=== PATIENT | female | born 1990 | race Hispanic/Latino ===

== ENCOUNTER 2022-10-17 09:30 | Inpatient (IN) | payer MEDICAID, SELFPAY ==
[~2022-10-17 09:30] MED LIST: Iopamidol 370 76% 100 ML VIAL ONE; Iopamidol 370 76% 50 ML VIAL FS ONE
[2022-10-17] MEDS ORDERED: Ondansetron PF 4 MG/2 ML Vial ONE ×2 (09:45→10:57)
[2022-10-17 10:30] LABS: #Eosinphils 0.1 thou/uL (0.0-0.7); #Monocytes 0.4 thou/uL (0.11-0.59); #Neutrophils 6.8 thou/uL (1.40-6.50); %Basophils 0.2 % (0.0-1.0); %Eosinophils 0.9 % (0.0-10.0); %Lymphocytes 12.3 % (21.0-51.0); %Monocytes 5.2 % (0.0-10.0); %Neutrophils 81.3 % (42.0-75.0); Hemoglobin 12.7 g/dL (12.0-16.0); Mean Corpuscular HGB CONC 33.7 g/dL (32.0-36.0); Mean Corpuscular Hemoglobin 29.5 pg (27.0-31.0); Mean Corpuscular Volume 87.7 fl (78.0-98.0); Mean Platelet Volume 7.2 fL (7.4-10.4); Platelet Count 334 10x3/uL (130-400); RBC Distribution Width 11.8 % (11.5-14.5); White Blood Cell (WBC) Count 8.3 10x3/uL (4.8-10.8)
[2022-10-17] MEDS ORDERED: Glycopyrrolate 0.2 MG/ML 5 ML SYRINGE ONE (10:57)
[2022-10-17] MEDS ORDERED: PHENYLEPHRINE-NS 100 MCG/ML 10 ML SYRINGE ONE (10:57)
[2022-10-17] MEDS ORDERED: PROPOFOL 200 MG/20 ML VIAL ONE (10:57)
[2022-10-17] MEDS ORDERED: Rocuronium Bromide 10 MG/ML (10ML VIAL) ONE (10:57)
[2022-10-17] MEDS ORDERED: Succinylcholine Chloride 100 MG/5 ML SYRINGE FS ONE (10:57)
[2022-10-17] MEDS ORDERED: Lidocaine 1% PF 5 ML VIAL ONE (10:57)
[2022-10-17] MEDS ORDERED: Dexamethasone 20 MG/5 ML VIAL ONE (10:57)
[2022-10-17 11:00] LABS: ALT (SGPT) 19 U/L (8-55); AST (SGOT) 23 U/L (5-34); Albumin 4.2 g/dL (3.5-5.0); Alkaline Phosphatase 64 U/L (40-110); Anion Gap 17 mmol/L (10-20); BUN (Urea Nitrogen) 10 mg/dL (7.0-18.7); Bilirubin, Total 0.3 mg/dL (0.2-1.2); Calc. Creatinine Clearance 0 mL/min (70-130); Calcium 9.4 mg/dL (7.8-10.44); Carbon Dioxide 19 mmol/L (22-29); Chloride 104 mmol/L (98-107); Estimated GFR 119; Globulin 3.7 g/dL (2.4-3.5); Glucose 88 mg/dL (70-105); Magnesium 1.9 mg/dL (1.6-2.6); Potassium 3.7 mmol/L (3.5-5.1); Protein, Total 7.9 g/dL (6.0-8.3); Sodium 136 mmol/L (136-145)
[2022-10-17] MEDS ORDERED: Iopamidol-370 76% 500 ML 1 ML ONE (11:14)
[2022-10-17] MEDS ORDERED: Heparin 10,000 UNITS/ 10 ML VIAL ONE (11:18)
[2022-10-17] MEDS ORDERED: SUGAMMADEX SODIUM 200 MG/2 ML VIAL ONE (11:40)
[2022-10-17] MEDS ORDERED: hydrALAZINE 20 MG/ML VIAL SLOW IVP PRN (11:55)
[2022-10-17] MEDS ORDERED: Bisacodyl 10 MG SUPP PR PRN (11:55)
[2022-10-17] MEDS ORDERED: niCARdipine 25 MG in Sodium Chloride 0.9% 250 ML 250 ML IVPB PRN (11:55)
[2022-10-17] MEDS ORDERED: Labetalol HCl 100 MG/20 ML VIAL SLOW IVP PRN (11:55)
[2022-10-17] MEDS ORDERED: Promethazine HCl 25 MG/ML VIAL ONE (12:10)
[2022-10-17] MEDS ORDERED: Meperidine HCl/PF 25 MG/ML VIAL ONE (12:33)
[2022-10-17 17:59] LABS: ALT (SGPT) 15 U/L (8-55); AST (SGOT) 17 U/L (5-34); Albumin 3.9 g/dL (3.5-5.0); Alkaline Phosphatase 61 U/L (40-110); Anion Gap 10 mmol/L (10-20); BUN (Urea Nitrogen) 7 mg/dL (7.0-18.7); Bilirubin, Total 0.2 mg/dL (0.2-1.2); Calc. Creatinine Clearance 0 mL/min (70-130); Calcium 8.6 mg/dL (7.8-10.44); Carbon Dioxide 21 mmol/L (22-29); Chloride 111 mmol/L (98-107); Estimated GFR 118; Glucose 122 mg/dL (70-105); Potassium 3.6 mmol/L (3.5-5.1); Protein, Total 6.9 g/dL (6.0-8.3); Sodium 138 mmol/L (136-145)
[2022-10-17 18:02] LABS: #Lymphocytes 0.4 thou/uL (1.20-3.40); #Monocytes 0.1 thou/uL (0.11-0.59); #Neutrophils 11.2 thou/uL (1.40-6.50); %Lymphocytes 3.3 % (21.0-51.0); %Monocytes 0.6 % (0.0-10.0); %Neutrophils 96.1 % (42.0-75.0); Hemoglobin 12.1 g/dL (12.0-16.0); Mean Corpuscular HGB CONC 33.5 g/dL (32.0-36.0); Mean Corpuscular Hemoglobin 29.3 pg (27.0-31.0); Mean Corpuscular Volume 87.4 fl (78.0-98.0); Mean Platelet Volume 7.1 fL (7.4-10.4); Platelet Count 316 10x3/uL (130-400); RBC Distribution Width 11.9 % (11.5-14.5); Red Blood Cell (RBC) Count 4.14 mill/uL (4.20-5.40); White Blood Cell (WBC) Count 11.7 10x3/uL (4.8-10.8)
[2022-10-17] MEDS ORDERED: Acetaminophen 325 MG TAB ONE (18:40)
[2022-10-17] MEDS: Acetaminophen 325 MG TAB PO PRN (18:44)
[2022-10-17 20:29] VITALS: BMI 32.9
[2022-10-17] MEDS: Sodium Chloride 0.9% 1,000 ML IV SCH (20:44)
[2022-10-17] MEDS: Atorvastatin Calcium 40 MG TAB PO SCH (22:43)
[2022-10-17] MEDS: Communication Order-Pharmacy FS SCH (22:49)
[2022-10-18 06:03] LABS: Cardiac Risk 4.3 (Less than 4.5)
[2022-10-18] MEDS: Acetaminophen 325 MG TAB PO PRN ×3 (06:20→18:31)
[2022-10-18] MEDS: Sodium Chloride 0.9% 1,000 ML IV SCH ×2 (07:07→08:36)
[2022-10-18] MEDS: Pantoprazole 40 MG VIAL IVP SCH (08:02)
[2022-10-18] MEDS ORDERED: ALPRAZolam 0.25 MG TAB PO PRN (10:02)
[2022-10-18] MEDS: Ondansetron PF 4 MG/2 ML Vial IVP PRN (11:47)
[2022-10-18] MEDS: Communication Order-Pharmacy FS SCH (11:47)
[2022-10-18] MEDS: Atorvastatin Calcium 40 MG TAB PO SCH (21:27)
[2022-10-19] MEDS: Acetaminophen 325 MG TAB PO PRN ×3 (01:20→20:26)
[2022-10-19] MEDS: Ondansetron PF 4 MG/2 ML Vial IVP PRN (08:07)
[2022-10-19] MEDS: Pantoprazole 40 MG VIAL IVP SCH (08:10)
[2022-10-19] MEDS: DULoxetine 20 MG CAP PO SCH (08:10)
[2022-10-19] MEDS: Aspirin 325 mg Enteric Coated Tablet PO SCH (08:10)
[2022-10-19] MEDS: Ketorolac Tromethamine 30 MG/ML VIAL IVP PRN ×2 (10:53→17:49)
[2022-10-19] MEDS: Atorvastatin Calcium 40 MG TAB PO SCH (20:26)
[2022-10-20] MEDS: Acetaminophen 325 MG TAB PO PRN (06:31)
[2022-10-20] MEDS ORDERED: FLU VACC QS2022-23(6MOS UP)/PF 60 MCG/0.5 ML SYRINGE IM ONE (09:00)
[2022-10-20] MEDS: Pantoprazole 40 MG VIAL IVP SCH (09:11)
[2022-10-20] MEDS: Aspirin 325 mg Enteric Coated Tablet PO SCH (09:11)
[2022-10-20] MEDS: DULoxetine 20 MG CAP PO SCH (09:11)
[2022-10-20 12:47] LABS: INR-International Normal Ratio 1.1; Prothrombin Time 14.8 sec (12.0-14.7)
[2022-10-20 12:48] LABS: PTT 36.1 sec (22.9-36.1)
[2022-10-20 12:50] LABS: D-Dimer Test 1.54 *mcg/mL (0.27-0.43)
[2022-10-20] MEDS: Ketorolac Tromethamine 30 MG/ML VIAL IVP PRN (18:06)
[2022-10-20] MEDS: Atorvastatin Calcium 40 MG TAB PO SCH (20:53)
[2022-10-21] MEDS: DULoxetine 20 MG CAP PO SCH (09:11)
[2022-10-21] MEDS: Aspirin 325 mg Enteric Coated Tablet PO SCH (09:44)
[2022-10-21] MEDS: Pantoprazole 40 MG VIAL IVP SCH (09:57)
[2022-10-21 16:05] VITALS: BP 137/80; TEMP 98.5
[2022-10-22] MEDS ORDERED: Aspirin 81 mg Enteric Coated Tablet PO SCH (09:00)
[2022-10-25 15:03] LABS: Protein C Activity 136 % (78-152)
[2022-10-25 15:05] LABS: Factor VIII Test 125.3 % ACTIVE (56-157)
[2022-10-26 13:00] LABS: Cardiolipin IgA Ab 2.4 APL-U/mL (<14 Negative); Cardiolipin IgG Ab 1.4 GPL-U/mL (<10 Negative); Cardiolipin IgM Ab 5.5 MPL-U/mL (<10 Negative); EliA APS New Method **** NEW METHOD ****
[2022-10-27 16:15] LABS: Activated Protein C Resistance 2.7 ratio (.)
== END 2022-10-21 18:55 | disposition home or self-care (01) | DRG 23 ==
LOC: ERS 09:30 → CCU 10:36 → CCL 10:36 → CCU 11:27 → NEURO 10-19 17:31
PROVIDERS: ADMIT Neurological Surgery; ATTEND Internal Medicine
PROC: B31R1ZZ Fluoroscopy of Intracranial Arteries using Low Osmolar Contrast (ICD-10-PCS; principal; 2022-10-17)
PROC: 03CG3Z7 Extirpation of Matter from Intracranial Artery using Stent Retriever, Percutaneous Approach (ICD-10-PCS; 2022-10-17)
DX: I63.311 Cerebral infarction due to thrombosis of right middle cerebral artery (principal); G93.6 Cerebral edema; G81.94 Hemiplegia, unspecified affecting left nondominant side; F41.9 Anxiety disorder, unspecified; I10 Essential (primary) hypertension; D72.829 Elevated white blood cell count, unspecified; E66.9 Obesity, unspecified; E78.5 Hyperlipidemia, unspecified; Z20.822 Contact with and (suspected) exposure to COVID-19; Z82.49 Family history of ischemic heart disease and other diseases of the circulatory system; Z68.33 Body mass index [BMI] 33.0-33.9, adult; Z88.6 Allergy status to analgesic agent; Z92.82 Status post administration of tPA (rtPA) in a different facility within the last 24 hours prior to admission to current facility; I08.1 Rheumatic disorders of both mitral and tricuspid valves; R29.810 Facial weakness; R47.1 Dysarthria and anarthria; R29.718 NIHSS score 18
CPT/HCPCS: 0042T; 36415; 70450; 70496; 70498; 70551; 80053; 80061; 83090; 83735; 85025; 85240; 85300; 85303; 85305; 85307; 85347; 85379; 85598; 85610; 85730; 86147; 93005; 93306; 95712; 95819; 95957; C1769; C1887; C1894; C9113; J1100; J1644; J1650; J1885; J2175; J2405; J2550; J2704; J7050; Q9967; U0003; U0005

== ENCOUNTER 2022-11-08 09:54 | Emergency (ER) | payer SELFPAY ==
[2022-11-08 11:30] LABS: #Eosinphils 0.1 thou/uL (0.0-0.7); #Monocytes 0.3 thou/uL (0.11-0.59); #Neutrophils 3.8 thou/uL (1.40-6.50); %Basophils 0.3 % (0.0-1.0); %Eosinophils 1.3 % (0.0-10.0); %Lymphocytes 19.8 % (21.0-51.0); %Monocytes 6.5 % (0.0-10.0); Hemoglobin 13.2 g/dL (12.0-16.0); Mean Corpuscular HGB CONC 33.1 g/dL (32.0-36.0); Mean Corpuscular Hemoglobin 29.1 pg (27.0-31.0); Mean Corpuscular Volume 87.9 fl (78.0-98.0); Mean Platelet Volume 7.4 fL (7.4-10.4); Platelet Count 341 10x3/uL (130-400); RBC Distribution Width 12.1 % (11.5-14.5); Red Blood Cell (RBC) Count 4.54 mill/uL (4.20-5.40); White Blood Cell (WBC) Count 5.2 10x3/uL (4.8-10.8)
[2022-11-08 11:51] LABS: ALT (SGPT) 10 U/L (8-55); AST (SGOT) 19 U/L (5-34); Albumin 4.7 g/dL (3.5-5.0); Alkaline Phosphatase 75 U/L (40-110); Anion Gap 11 mmol/L (10-20); BUN (Urea Nitrogen) 6 mg/dL (7.0-18.7); Bilirubin, Total 0.4 mg/dL (0.2-1.2); Calc. Creatinine Clearance 0 mL/min (70-130); Carbon Dioxide 25 mmol/L (22-29); Chloride 106 mmol/L (98-107); Estimated GFR 114; Globulin 3.4 g/dL (2.4-3.5); Glucose 96 mg/dL (70-105); Protein, Total 8.1 g/dL (6.0-8.3); Sodium 138 mmol/L (136-145)
== END 2022-11-08 13:14 | disposition home or self-care (01) ==
LOC: ERS 09:54
DX: I10 Essential (primary) hypertension (principal)
CPT/HCPCS: 36415; 71045; 80053; 85025; 93005

== ENCOUNTER 2023-07-20 15:21 | Emergency (ER) | payer SELFPAY ==
[2023-07-20 16:03] LABS: #Basophils 0.1 thou/uL (0.0-0.2); #Eosinphils 0.1 thou/uL (0.0-0.7); #Monocytes 0.5 thou/uL (0.11-0.59); %Eosinophils 1.7 % (0.0-10.0); %Lymphocytes 21.2 % (21.0-51.0); %Monocytes 7.6 % (0.0-10.0); %Neutrophils 68.3 % (42.0-75.0); Hematocrit 26.1 % (36.0-47.0); Mean Corpuscular HGB CONC 30.7 g/dL (32.0-36.0); Mean Corpuscular Hemoglobin 21.7 pg (27.0-31.0); Mean Corpuscular Volume 70.9 fl (78.0-98.0); Mean Platelet Volume 9.7 fL (7.4-10.4); Platelet Count 391 10x3/uL (130-400); Red Blood Cell (RBC) Count 3.68 mill/uL (4.20-5.40); White Blood Cell (WBC) Count 5.9 10x3/uL (4.8-10.8)
[2023-07-20 16:18] LABS: INR-International Normal Ratio 1.2; PTT 33.3 sec (22.9-36.1); Prothrombin Time 16.1 sec (12.0-14.7)
[2023-07-20 16:33] LABS: Anisocytosis SLIGHT = 6-15 cells HPF (0-5); Burr Cells SLIGHT = 2-5 cells HPF (0-1); CellaVision Operator ID LAB.MJL; Elliptocytes SLIGHT = 2-5 cells HPF (0-1); Hypochromia SLIGHT = 6-15 cells HPF (0-5); Microcytosis SLIGHT = 6-15 cells HPF (0-5); Ovalocytes SLIGHT = 2-5 cells HPF (0-1); Platelet Adequacy Comment Platelets Normal; Poikilocytosis MODERATE=16-30 cells HPF (0-5); Polychromasia SLIGHT = 2-3 cells HPF (0-2); Schistocytes SLIGHT = 2-5 cells HPF (0-1); Target Cells SLIGHT = 2-5 cells HPF (0-1); Tear Drops SLIGHT = 2-5 cells HPF (0-1)
[2023-07-20 16:50] LABS: BHCG - Serum Negative (NEGATIVE); Pregs Control Background? CLEAR/WHITE (CLR/WHITE); Pregs Control Bar Appear? YES (CONTROL BAR)
[2023-07-20 17:04] LABS: ALT (SGPT) 10 U/L (8-55); AST (SGOT) 15 U/L (5-34); Albumin 4.5 g/dL (3.5-5.0); Alkaline Phosphatase 66 U/L (40-110); Anion Gap 14 mmol/L (10-20); BUN (Urea Nitrogen) 9 mg/dL (7.0-18.7); Bilirubin, Total 0.3 mg/dL (0.2-1.2); Calc. Creatinine Clearance 0 mL/min (70-130); Calcium 9.1 mg/dL (7.8-10.44); Carbon Dioxide 24 mmol/L (22-29); Chloride 105 mmol/L (98-107); Estimated GFR 98; Globulin 3.2 g/dL (2.4-3.5); Glucose 103 mg/dL (70-105); Iron 15 ug/dL (50-170); Iron Binding Capacity, Total 464 mcg/dL (265-497); Potassium 3.8 mmol/L (3.5-5.1); Protein, Total 7.7 g/dL (6.0-8.3); Sodium 139 mmol/L (136-145)
[2023-07-20] MEDS ORDERED: Iron, Sodium Ferric Gluconate 250 MG in Sodium Chloride 0.9% 250 ML 250 ML IVPB SCH (17:30)
== END 2023-07-20 20:07 | disposition home or self-care (01) ==
LOC: ERS 15:21
DX: D50.9 Iron deficiency anemia, unspecified (principal)
CPT/HCPCS: 36415; 80053; 82728; 83540; 83550; 84703; 85025; 85610; 85730; 86850; 86900; 86901; 96365; 96366; J2916; J7050